=== PATIENT | male | born 1955 | race Caucasian/White ===

== ENCOUNTER → 2017-05-08 | Outpatient (CLI) | payer OTHER, MEDICAID | LOC: CIMAGING 12:55 | PROVIDERS: ATTEND Nurse Practitioner | DX: R91.1 Solitary pulmonary nodule (principal); I71.2 Thoracic aortic aneurysm, without rupture; E11.9 Type 2 diabetes mellitus without complications | CPT/HCPCS: 71250-PO ==

== ENCOUNTER 2017-06-26 15:54 | Emergency (ER) | payer OTHER, MEDICAID ==
[2017-06-26 16:09] VITALS: TEMP 98.6; O2SAT 96
--- NOTE | 2017-06-26 16:37 | EDPHY ---
H & P Stated Complaint: More frequent falls x 3-4 months. Last fall today getting up from chair HPI/ROS: CHIEF COMPLAINT: Falling History by patient's brother and the patient HISTORY OF PRESENT ILLNESS: 62-year-old male with developmental delay is referred over from primary care physician's office for evaluation after falls. Patient's brother who is his air tank assembler states patient is in otherwise good health but a year ago was diagnosed with spinal stenosis when they noted he was having some difficulty walking and some calf atrophy. He had an MRI that confirmed the diagnosis of spinal stenosis and was evaluated by a neurologist at that time but not a neurosurgeon. Subsequently the patient has had continued calf atrophy with progressively more difficulty walking and worsening of his balance. Patient's brother states that generally he has difficulty feeling anything in his lower extremities making it difficult to evaluate his symptoms. There has been no fever or chills. The patient has otherwise been feeling well. He gets up and goes and feeds their animals every day and is active as usual. They deny loss of bowel or bladder control or incontinence. The increased frequency in falls has been having over the past several months and is not clearly acute, however yesterday he did clearly hit his face. Primary care physician was also concerned about a swollen right knee. Patient' s brother notes that generally when he falls a land on his knees. Brother notes that the his right knee was even more swollen last night but seemed to improve with rest and ice. Patient is denying any specific pain or other complaints. There is no syncope related to these falls. Patient has not loss consciousness with any of them. REVIEW OF SYSTEMS: As in HPI, and all other systems reviewed and are negative Source: Family - Personal History Current Tetanus Diphtheria and Acellular Pertussis (TDAP): Yes Tetanus Vaccine Date: within 10 years - Medical/Surgical History Hx Asthma: No Hx Chronic Respiratory Disease: No Hx Diabetes: No Hx Cardiac Disease: No Hx Renal Disease: No Hx Cirrhosis: No Hx Alcoholism: No Hx HIV/AIDS: No Hx Splenectomy or Spleen Trauma: No Other PMH: Spinal stenosis, developmental delay - Social History Smoking Status: Never smoked - Physical Exam Exam: General Appearance: Alert, pleasant appropriately interactive. Head: normocephalic, atraumatic Eyes: Pupils equal and round, reactive to light, no pallor or injection. Mouth: Mucous membranes moist. Neck: No bony tenderness, full range of motion Respiratory: Normal, effort, lungs are clear to auscultation. No wheezes, rales or rhonchi. Cardiovascular: Regular rate and rhythm. S1, S2, no murmurs, gallops or rubs appreciated Gastrointestinal: Abdomen is soft and nontender, no masses, bowel sounds normal. Back: No CVA tenderness, no bony tenderness Neurological: Awake, alert and oriented x 3, cranial nerves 2-12 intact, no pronator drift, strength is 5/5 and equal bilaterally lower extremities however patient limps and has an abnormal gait Skin: Warm and dry, no rashes. Musculoskeletal: Left calf with obvious atrophy, right knee positive multiple abrasions and positive mild swelling, no erythema, calor or drainage, full range of motion without pain, no ligamental laxity, DP pulses 2+ and equal bilaterally Psychiatric: Patient has normal affect, there is no agitation. Constitutional: Initial Vital Signs Temperature (C) 37 C 06/26/17 16:04 Heart Rate 54 L 06/26/17 16:04 Respiratory Rate 18 06/26/17 16:04 Blood Pressure 147/74 H 06/26/17 16:04 O2 Sat (%) 96 06/26/17 16:04 O2 Delivery Mode Room Air Allergies/Adverse Reactions: No Known Allergies Allergy (Verified 06/26/17 16:08) Home Medications: Medication Instructions Recorded NK [No Known Home Meds] 06/26/17 Medical Decision Making - Diagnostics Imaging Results: Imaging Impressions Head CT 06/26/17 16:38 Impression: There is no acute abnormality identified on this unenhanced CT evaluation. If there is further clinical concern regarding the patient's symptoms, MR imaging is suggested, if not otherwise contraindicated. Findings were discussed with Ute Hairston MD at 17:20, on 06/26/2017. Knee X-Ray 06/26/17 16:38 Impression:: No evidence for fracture. Soft tissue swelling anterior to the patella and patellar tendon. Mild early tricompartment degenerative change in the right knee. Imaging: Discussed imaging studies w/ call center support representative Radiologist ED Course/Re-evaluation: 62-year-old man with developmental delay known spinal stenosis with progressive left calf atrophy is brought in by his brother from the primary care physician' s office because of increasing frequency of falls. There is also concerned about the patient's for right knee swelling. The patient is weight-bearing on his right leg without difficulty and has full range of motion and there is no evidence of infection. I suspect traumatic effusion. An x-ray of the right knee X-ray showed effusion but no evidence of fracture. Head CT showed no evidence of acute injury per the radiologist.. I agree with the patient's brother that the spinal stenosis certainly contributing to his leg weakness and muscle atrophy and it is appropriate to have him evaluated by a neurosurgeon for his back. They have given Neurosurgery referrals. Patient's primary care physician has set up physical therapy and home health. Patient will follow up with Neurosurgery in his primary care physician. I discussed this with the patient's brother who understands and is agreeable to this plan. - Data Points Laboratory Results: Laboratory Results 06/26/17 16:40 06/26/17 16:40 06/26/17 06/26/17 16:40 16:40 WBC 7.30 10^3/uL 10^3/uL (3.80-9.50) RBC 4.86 10^6/uL 10^6/uL (4.40-6.38) Hgb 14.2 g/dL g/dL (13.7-17.5) Hct 41.8 % % (40.0-51.0) MCV 86.0 fL fL (81.5-99.8) MCH 29.2 pg pg (27.9-34.1) MCHC 34.0 g/dL g/dL (32.4-36.7) RDW 13.3 % % (11.5-15.2) Plt Count 275 10^3/uL 10^3/uL (150-400) MPV 9.3 fL fL (8.7-11.7) Neut % (Auto) 66.1 % % (39.3-74.2) Lymph % (Auto) 24.7 % % (15.0-45.0) Hill % (Auto) 8.1 % % (4.5-13.0) Eos % (Auto) 0.5 % L % (0.6-7.6) Baso % (Auto) 0.3 % % (0.3-1.7) Nucleat RBC Rel Count 0.0 % % (0.0-0.2) Absolute Neuts (auto) 4.83 10^3/uL 10^3/uL (1.70-6.50) Absolute Lymphs (auto) 1.80 10^3/uL 10^3/uL (1.00-3.00) Absolute Monos (auto) 0.59 10^3/uL 10^3/uL (0.30-0.80) Absolute Eos (auto) 0.04 10^3/uL 10^3/uL (0.03-0.40) Absolute Basos (auto) 0.02 10^3/uL 10^3/uL (0.02-0.10) Absolute Nucleated RBC 0.00 10^3/uL 10^3/uL (0-0.01) Immature Gran % 0.3 % % (0.0-1.1) Immature Gran # 0.02 10^3/uL 10^3/uL (0.00-0.10) Sodium 145 mEq/L H mEq/L (134-144) Potassium 4.1 mEq/L mEq/L (3.5-5.2) Chloride 105 mEq/L mEq/L (97-110) Carbon Dioxide 24 mEq/l mEq/l (22-31) Anion Gap 16 mEq/L mEq/L (8-16) BUN 17 mg/dL mg/dL (7-23) Creatinine 0.7 mg/dL mg/dL (0.7-1.3) Estimated GFR > 60 Glucose 100 mg/dL mg/dL (70-100) Calcium 9.4 mg/dL mg/dL (8.5-10.4) Departure - Departure Disposition: Home, Routine, Self-Care Clinical Impression: Fall Qualifiers: Encounter type: initial encounter Qualified Code(s): W19.XXXA - Unspecified fall, initial encounter Right knee injury Qualifiers: Encounter type: initial encounter Qualified Code(s): S89.91XA - Unspecified injury of right lower leg, initial encounter Contusion of face Qualifiers: Encounter type: initial encounter Qualified Code(s): S00.83XA - Contusion of other part of head, initial encounter Condition: Good Instructions: Swollen Knee Joint (ED), Fall Prevention for Older Adults (ED) Additional Instructions: You were seen by Dr. Ute Hairston today. The head CT and blood work today were normal. I recommend follow up with a neurosurgeon to discuss what treatment might be available for her spinal stenosis and nerve impingement causing left calf atrophy. Your primary care physician has set up home health and physical therapy and I recommend you continue with these therapies as well. Please follow-up with the neurosurgeon ( Dr. Linn or Dr. Ritter) and with your primary care physician. Return for any worsening or new concerns. Referrals: Gregory Peres MD [Medical Doctor] - As per Instructions NONE *PRIMARY CARE P,. [Primary Care Provider] - As per Instructions Morgan Ritter MD [Medical Doctor] - As per Instructions
[2017-06-26 16:44] LABS: PLATELET COUNT 275 10^3/uL (150-400)
[2017-06-26 17:52] VITALS: BP 136/91; PULSE 74; RESP 16
== END 2017-06-26 17:53 | disposition home or self-care (01) ==
LOC: CED 15:54
DX: S89.91XA Unspecified injury of right lower leg, initial encounter (principal); S00.83XA Contusion of other part of head, initial encounter; W18.39XA Other fall on same level, initial encounter
CPT/HCPCS: 70450-PO; 73562-PO; 80048-PO; 85025-PO

== ENCOUNTER → 2017-09-29 | Outpatient (CLI) | payer OTHER, MEDICAID | LOC: CIMAGING 15:39 | PROVIDERS: ATTEND Nurse Practitioner | DX: J44.9 Chronic obstructive pulmonary disease, unspecified (principal) | CPT/HCPCS: 71046-PO ==